=== PATIENT | male | born 1945 ===

== ENCOUNTER → 2018-09-23 12:30 | Outpatient (REF) | payer MEDICARE, BC, SELFPAY ==
[2018-09-23 12:43] LABS: INR 3.2 (0.9-1.3); Prothrombin Time 37.7 SECONDS (10.1-12.7)
== END ==
LOC: LAB 12:30
PROVIDERS: Visit Provider Internal Medicine
DX: I48.0 Paroxysmal atrial fibrillation (principal)
CPT/HCPCS: 36415; 85610

== ENCOUNTER → 2018-09-30 13:58 | Outpatient (REF) | payer MEDICARE, BC, SELFPAY ==
[2018-09-30 14:14] LABS: INR 1.8 (0.9-1.3); Prothrombin Time 20.7 SECONDS (10.1-12.7)
== END ==
LOC: LAB 13:58
PROVIDERS: Visit Provider Internal Medicine
DX: I48.91 Unspecified atrial fibrillation (principal)
CPT/HCPCS: 36415; 85610

== ENCOUNTER → 2018-10-07 13:19 | Outpatient (REF) | payer MEDICARE, SELFPAY ==
[2018-10-07 13:49] LABS: INR 2.5 (0.9-1.3); Prothrombin Time 29.3 SECONDS (10.1-12.7)
== END ==
LOC: LAB 13:19
PROVIDERS: Visit Provider Internal Medicine
DX: Z51.81 Encounter for therapeutic drug level monitoring (principal)
CPT/HCPCS: 36415; 85610

== ENCOUNTER → 2018-10-21 13:37 | Outpatient (REF) | payer MEDICARE, SELFPAY ==
[2018-10-21 14:42] LABS: INR 3.1 (0.9-1.3)
[2018-10-21 14:56] LABS: Alanine Aminotransferase 22 IU/L (21-72); Albumin 3.1 g/dL (3.5-5.0); Albumin Globulin Ratio 0.8 (1.0-2.8); Alkaline Phosphatase 101 U/L (38-126); Aspartate Aminotransferase 18 IU/L (17-59); BUN Creatinine Ratio 32.9 (6-22); Bilirubin Total 0.4 mg/dL (0.2-1.3); Blood Urea Nitrogen 46 mg/dL (9-20); Calcium 8.2 mg/dL (8.4-10.2); Carbon Dioxide 35 mmol/L (22-32); Chloride 99 mmol/L (98-107); Cholesterol 100 mg/dL (140-199); Estimated Glomerular Filt Rate 49.5 mL/min (>60); Globulin 4.1 g/dL (1.7-4.1); Glucose 140 mg/dL (80-110); HDL Cholesterol 27 mg/dL (40-60); HEMOLYSIS < 15 (0-50); LDL Cholesterol Calculated 56 mg/dL (<100); Sodium 142 mmol/L (137-145); Total Protein 7.2 g/dL (6.3-8.2); Triglycerides 83 mg/dL (35-150)
[2018-10-21 14:57] LABS: Potassium 5.8 mmol/L (3.4-5.1)
[2018-10-21 15:02] LABS: Hemoglobin A1C% w Est Avg Glu 6.8 % (4.0-6.0)
== END ==
LOC: LAB 13:37
PROVIDERS: Visit Provider Internal Medicine
DX: I48.0 Paroxysmal atrial fibrillation (principal); E11.29 Type 2 diabetes mellitus with other diabetic kidney complication; R80.9 Proteinuria, unspecified
CPT/HCPCS: 36415; 80053; 80061; 83036; 85610

== ENCOUNTER → 2018-11-18 13:39 | Outpatient (REF) | payer MEDICARE, BC, SELFPAY ==
[2018-11-18 14:15] LABS: INR 1.5 (0.9-1.3); Prothrombin Time 17.5 SECONDS (10.1-12.7)
== END ==
LOC: LAB 13:39
PROVIDERS: Visit Provider Internal Medicine
DX: I48.91 Unspecified atrial fibrillation (principal)
CPT/HCPCS: 85610

== ENCOUNTER → 2018-11-27 14:08 | Outpatient (REF) | payer MEDICARE, BC, SELFPAY ==
[2018-11-27 14:55] LABS: INR 2.6 (0.9-1.3); Prothrombin Time 30.8 SECONDS (10.1-12.7)
== END ==
LOC: LAB 14:08
PROVIDERS: Visit Provider Internal Medicine
DX: I48.0 Paroxysmal atrial fibrillation (principal)
CPT/HCPCS: 85610

== ENCOUNTER → 2018-12-02 13:29 | Outpatient (REF) | payer MEDICARE, BC, SELFPAY ==
[2018-12-02 14:17] LABS: INR 2.6 (0.9-1.3); Prothrombin Time 31.2 SECONDS (10.1-12.7)
== END ==
LOC: LAB 13:29
PROVIDERS: Visit Provider Internal Medicine
DX: I48.91 Unspecified atrial fibrillation (principal)
CPT/HCPCS: 85610

== ENCOUNTER → 2018-12-18 13:28 | Outpatient (REF) | payer MEDICARE, BC, SELFPAY ==
[2018-12-18 13:58] LABS: Prothrombin Time 82.3 SECONDS (10.1-12.7)
[2018-12-18 13:59] LABS: INR 6.8 (0.9-1.3)
== END ==
LOC: LAB 13:28
PROVIDERS: Visit Provider Internal Medicine
DX: I48.0 Paroxysmal atrial fibrillation (principal)
CPT/HCPCS: 85610